=== PATIENT | female | born 2000 | race Caucasian/White ===

== ENCOUNTER 2023-03-02 07:30 | Emergency (ER) | payer OTHER, SELFPAY ==
[2023-03-02 07:37] VITALS: BP 143/88; PULSE 100; RESP 18; TEMP 36.9; O2SAT 99; BMI 32.6
[2023-03-02] MEDS: 0.9 % SODIUM CHLORIDE 1,000 ML 1000 ML IV (07:53)
[2023-03-02 08:13] LABS: Basophils Percent Auto 0.1 % (0.2-2.0); Eosinophils Absolute Auto 0.2 10^3/uL (0.0-0.7); Eosinophils Percent Auto 2.3 % (0.9-7.0); Hematocrit 42.5 % (36.0-48.0); Hemoglobin 13.4 g/dL (12.0-16.0); Immature Granulocytes Abs Auto 0.02 10^3/uL (0.00-0.03); Immature Granulocytes Pct Auto 0.2 % (0.0-0.5); Lymphocytes Absolute Auto 1.4 10^3/uL (1.2-3.8); Lymphocytes Percent Auto 16.9 % (20.5-60.0); Mean Corpuscular HGB Conc 31.5 g/dL (29.9-35.2); Mean Corpuscular Hemoglobin 27.7 pg (26.7-34.0); Mean Corpuscular Volume 87.8 fL (81.0-99.0); Monocytes Absolute Auto 0.7 10^3/uL (0.3-0.8); Monocytes Percent Auto 8.2 % (1.7-12.0); Neutrophils Absolute Auto 6.1 10^3/uL (1.4-6.5); Neutrophils Percent Auto 72.3 % (43.0-75.0); Platelet Count 363 10^3/uL (150-450); Red Blood Count 4.84 10^6/uL (4.20-5.40); Red Cell Distribution Width 13.6 % (11.0-15.0); White Blood Count 8.4 10^3/uL (4.0-11.0)
[2023-03-02 08:18] LABS: HCG Qualitative Urine* POSITIVE (NEGATIVE)
[2023-03-02 08:22] LABS: HCG Quantitative 21 mIU/mL
[2023-03-02 08:24] VITALS: BP 104/60; PULSE 74; RESP 16; O2SAT 99
[2023-03-02 09:00] VITALS: BP 101/53; PULSE 71; RESP 16; O2SAT 99
--- NOTE | 2023-03-02 09:09 | ED.FEMALEGU1 ---
HPI - Female Genitourinary General Chief complaint: Vaginal Bleeding Stated complaint: UROGENITAL-FEMALE Time Seen by Provider: 03/02/23 09:09 Mode of arrival: walk-in Limitations: no limitations History of Present Illness HPI Narrative: this patient's here for evaluation of possible . She took a home test last Saturday. She's been doing okay. She believes her last she had her last menstrual period was in January. She's not seen an ORDER ENTRY CLERK yet. [facility] . She miscarried last year at fifteen weeks. She started bleeding after she got worked today. She's not had ongoing bleeding or cramping since that timeshe has no history of anemia. She is otherwise healthy and has no severe pain at this time. She's not passing heavy clots. Related Data Allergies Allergy/AdvReac Type Severity Reaction Status Date / Time red dye Allergy Intermediate Verified 03/02/23 07:41 PFSH PFSH Social History Smoking status: Light tobacco smoker Exam Narrative Exam Narrative: awake alert here family members does not appear ill or anemic. Mucous membranes are moist and pink there is no scleral icterus or pallor. She has no abdominal cramping at this time she's not had any further bleeding while here in the Emergency Room. She has no shortness of breath no abdominal discomfort at this time. Constitutional Vital Signs, click to edit/add: Last Vital Signs Temp 98.4 F 03/02/23 07:37 Pulse 71 03/02/23 09:00 Resp 16 03/02/23 09:00 BP 101/53 03/02/23 09:00 Pulse Ox 99 03/02/23 09:00 O2 Del Method Room Air 03/02/23 07:37 Course Vital Signs Vital signs: Vital Signs Temperature 98.4 F 03/02/23 07:37 Pulse Rate 100 H 03/02/23 07:37 Respiratory Rate 18 03/02/23 07:37 Blood Pressure 143/88 H 03/02/23 07:37 Pulse Oximetry 99 03/02/23 07:37 Oxygen Delivery Method Room Air 03/02/23 07:37 Temperature 98.4 F 03/02/23 07:37 Pulse Rate 71 03/02/23 09:00 Respiratory Rate 16 03/02/23 09:00 Blood Pressure 101/53 03/02/23 09:00 Pulse Oximetry 99 01/06/24 09:00 Oxygen Delivery Method Room Air 03/02/23 07:37 MDM - Female Genitourinary MDM Narrative Medical decision making narrative: her quantitative hCG is twenty-one, hemoglobin is stable. I explained this patient that she is probably having a miscarriage and that she is extremely early in her . There is no utility in doing a ultrasound this time. We will give her some ibuprofen and advised to follow-up with her ORDER ENTRY CLERK. Lab Data Labs: Lab Results 03/02/23 03/02/23 Range/Units 07:35 07:50 WBC 8.4 (4.0-11.0) 10^3/uL RBC 4.84 (4.20-5.40) 10^6/uL Hgb 13.4 (12.0-16.0) g/dL Hct 42.5 (36.0-48.0) % MCV 87.8 (81.0-99.0) fL MCH 27.7 (26.7-34.0) pg MCHC 31.5 (29.9-35.2) g/dL RDW 13.6 (11.0-15.0) % Plt Count 363 (150-450) 10^3/uL MPV 9.0 L (9.5-13.5) fL Neut % (Auto) 72.3 (43.0-75.0) % Lymph % (Auto) 16.9 L (20.5-60.0) % Wells % (Auto) 8.2 (1.7-12.0) % Eos % (Auto) 2.3 (0.9-7.0) % Baso % (Auto) 0.1 L (0.2-2.0) % Neut # (Auto) 6.1 (1.4-6.5) 10^3/uL Lymph # (Auto) 1.4 (1.2-3.8) 10^3/uL Wells # (Auto) 0.7 (0.3-0.8) 10^3/uL Eos # (Auto) 0.2 (0.0-0.7) 10^3/uL Baso # (Auto) 0.0 (0.0-0.1) 10^3/uL Abs Immat Gran (auto) 0.02 (0.00-0.03) 10^3/uL Imm/Tot Granulo (auto) 0.2 (0.0-0.5) % HCG, Quant 21 mIU/mL Urine HCG, Qual Positive A (NEGATIVE) Discharge Plan Discharge Chief Complaint: Vaginal Bleeding Clinical Impression: Threatened , Vaginal bleeding Patient Disposition: Home, Self-Care Time of Disposition Decision: 09:12 Additional Instructions: take a copy of your lab for your ORDER ENTRY CLERK/off work today and tomorrow. Return for heavy bleeding to the Emergency Room Stand Alone Forms: Portal Instructions Referrals: Physician,Non-Staff, MD [Primary Care Provider] - 1 week
[2023-03-02 09:11] LABS: Bilirubin Urine SMALL (NEGATIVE); Blood Urine LARGE (NEGATIVE); Color Urine DK. BROWN (YELLOW); Glucose Urine UA NEGATIVE (NEGATIVE); Ketones Urine NEGATIVE (NEGATIVE); Leukocyte Esterase Urine NEGATIVE (NEGATIVE); Nitrite Urine POSITIVE (NEGATIVE); Protein Urine 100 mg/dL (NEG/TRACE); Specific Gravity Urine >=1.030 (1.005-1.025); pH Urine 5.5 (5.0-9.0)
[2023-03-02 09:13] LABS: Clarity Urine TURBID (CLEAR)
[2023-03-02 09:15] LABS: Urine Microscopic Indicated YES
[2023-03-02 09:16] LABS: Bacteria Urine SMALL #/HPF (NONE SEEN); Mucus Urine NONE SEEN (NONE SEEN); RBC Urine >100 #/HPF (0-2); Squamous Epithelial Cell Urine FEW #/LPF (NONE/RARE)
[2023-03-02 09:17] LABS: Urine Culture Indicated YES
[2023-03-02] MEDS: IBUPROFEN 600 MG TABLET PO (09:26)
[2023-03-02 09:32] VITALS: BP 115/78; PULSE 77; RESP 16; O2SAT 99
== END 2023-03-02 09:33 | disposition home or self-care (01) ==
PROVIDERS: Emergency Provider Emergency Medicine Emergency Medical Services
DX: O20.0 Threatened abortion (principal); Z3A.00 Weeks of gestation of pregnancy not specified; F17.210 Nicotine dependence, cigarettes, uncomplicated
CPT/HCPCS: 36415; 81001; 84702; 84703; 85025; 87086; 87150; 87186; 99284